=== PATIENT | female | born 1960 | race Caucasian/White ===

== ENCOUNTER → 2016-08-03 | Outpatient (REF) | payer OTHER ==
[2016-08-03 13:02] LABS: BASO % 0.8 % (0.0-1.0); EOS % 1.3 % (0.0-3.0); LARGE UNSTAINED CELL # 0.1 K/mm3 (0.0-0.4); LARGE UNSTAINED CELL % 2.1 % (0.0-4.0); LYMPH # 1.3 K/mm3 (1.5-4.5); LYMPH % 33.7 % (24.0-44.0); MEAN CORPUSCULAR HEMOGLOBIN 28.2 pg (27.0-33.0); MEAN CORPUSCULAR HGB CONC 32.1 g/dl (32.0-36.5); MEAN CORPUSCULAR VOLUME 87.7 fl (80.0-96.0); MONO # 0.2 K/mm3 (0.0-0.8); NEUTROPHILS # 2.2 K/mm3 (1.8-7.7); NEUTROPHILS % 56.1 % (36.0-66.0); PLATELET COUNT, AUTOMATED 178 k/mm3 (150-450); RED CELL DISTRIBUTION WIDTH 14.3 % (11.5-14.5); WHITE BLOOD COUNT 3.8 K/mm3 (4.0-10.0)
[2016-08-03 13:39] LABS: ALBUMIN 4.2 GM/DL (3.2-5.2); ALBUMIN/GLOBULIN RATIO 1.31 (1.00-1.93); ALKALINE PHOSPHATASE 104 U/L (45-117); ALT/SGPT 55 U/L (12-78); ANION GAP 10 MEQ/L (8-16); AST/SGOT 59 U/L (15-37); BILIRUBIN,TOTAL 0.3 MG/DL (0.2-1.0); BLOOD UREA NITROGEN 15 MG/DL (7-18); CALCIUM LEVEL 9.3 MG/DL (8.5-10.1); CARBON DIOXIDE LEVEL 26 MEQ/L (21-32); CHLORIDE LEVEL 104 MEQ/L (98-107); CHOLESTEROL LEVEL 132 MG/DL (<200); CREATININE FOR GFR 0.75 MG/DL (0.55-1.02); FREE T4 1.28 NG/DL (0.76-1.46); GLOMERULAR FILTRATION RATE > 60.0 (>51); GLUCOSE, FASTING 184 MG/DL (70-105); POTASSIUM SERUM 4.7 MEQ/L (3.5-5.1); SODIUM LEVEL 140 MEQ/L (136-145); TOTAL PROTEIN 7.4 GM/DL (6.4-8.2); TRIGLYCERIDES LEVEL 238 MG/DL (<150)
== END ==
LOC: M LABDRWAD 12:17
PROVIDERS: ATTEND Nurse Practitioner Family
DX: K21.9 Gastro-esophageal reflux disease without esophagitis (principal); E55.9 Vitamin D deficiency, unspecified; E11.9 Type 2 diabetes mellitus without complications; E78.4 Other hyperlipidemia; E03.9 Hypothyroidism, unspecified; I10 Essential (primary) hypertension

== ENCOUNTER → 2016-09-20 | Outpatient (CLI) | payer OTHER ==
--- NOTE | 2016-09-20 10:47 | REPMRS ---
Patient History The patient states she had a clinical breast exam in 08/2015. Patient is postmenopausal. No known family history of cancer. Digital Woman Screen Mammo: September 20, 2016 - Exam #: [id number] Bilateral CC and MLO view(s) were taken. Technologist: Haleigh Piña, Technologist Prior study comparison: March 18, 2013, digital woman screen mammo performed at [facility]. January 18, 2010, digital bilateral screening mammo, performed at [facility]. FINDINGS: There are scattered fibroglandular densities. The small grouping of tiny punctate calcification seen on the MLO view from 2012 has not progressed in the 4-year interval and is barely visible. Stable calcifications. There has been no change in the appearance of the mammogram from the prior studies. There is a mild amount of scattered fibroglandular density which is fairly symmetric. There is no interval development of dominant mass, architectural distortion, or clustered microcalcification suggestive of malignancy. ASSESSMENT: BI-RADS/ACR category 1 mammogram. Negative. Recommendation Routine screening mammogram in 1 year (for women over age 40). This mammogram was interpreted with the aid of an FDA-approved computer-aided dectection system. Electronically Signed By: Greg Berry MD 09/20/16 1324
== END ==
LOC: M WHC 08:45
PROVIDERS: ATTEND Nurse Practitioner Family
DX: Z12.31 Encounter for screening mammogram for malignant neoplasm of breast (principal); Z78.0 Asymptomatic menopausal state

== ENCOUNTER 2017-07-10 14:20 | Emergency (ER) | payer OTHER ==
[2017-07-10 16:21] LABS: APPEARANCE, URINE CLEAR (CLEAR); BACTERIA, URINE AUTO NEGATIVE (NEGATIVE); BILIRUBIN, URINE AUTO NEGATIVE (NEGATIVE); BLOOD, URINE BLOOD NEGATIVE (NEGATIVE); COLOR, URINE YELLOW (YELLOW); GLUCOSE, URINE (UA) AUTO 3+ mg/dL (NEGATIVE); KETONE, URINE AUTO TRACE mg/dL (NEGATIVE); LEUKOCYTE ESTERASE, URINE AUTO NEGATIVE (NEGATIVE); MUCUS, URINE SMALL (NEGATIVE); NITRITE, URINE AUTO NEGATIVE (NEGATIVE); PROTEIN, URINE AUTO NEGATIVE (NEGATIVE); RBC, URINE AUTO 1 /HPF (0-3); SPECIFIC GRAVITY URINE AUTO 1.022 (1.002-1.035); SQUAMOUS EPITHELIAL CELL UR AU 0 /HPF (0-6); UROBILINOGEN, URINE AUTO 0.2 mg/dL (0.0-2.0); WBC, URINE AUTO 5 /HPF (0-3)
[2017-07-10] MEDS: NS 1,000 ML IV (17:00)
[2017-07-10 17:07] LABS: BASO # 0.1 10^3/uL (0.0-0.2); BASO % 1.1 % (0.0-1.0); EOS # 0.1 10^3/uL (0.0-0.50); EOS % 1.1 % (0.0-3.0); HEMATOCRIT 35.7 % (36.0-47.0); HEMOGLOBIN 11.1 g/dl (12.0-15.5); IMMATURE GRANULOCYTE % 0.6 % (0-3.0); LYMPH # 1.9 10^3/uL (1.5-4.5); LYMPH % 39.9 % (24.0-44.0); MEAN CORPUSCULAR HEMOGLOBIN 25.5 pg (27.0-33.0); MEAN CORPUSCULAR HGB CONC 31.1 g/dl (32.0-36.5); MEAN CORPUSCULAR VOLUME 82.1 fl (80.0-96.0); MONO # 0.3 10^3/uL (0.0-0.8); MONO % 7.2 % (0.0-5.0); NEUTROPHILS # 2.4 10^3/uL (1.8-7.7); NEUTROPHILS % 50.1 % (36.0-66.0); PLATELET COUNT, AUTOMATED 192 10^3/uL (150-450); RED BLOOD COUNT 4.35 10^6/uL (4.00-5.40); RED CELL DISTRIBUTION WIDTH 15.2 % (11.5-14.5); WHITE BLOOD COUNT 4.7 10^3/uL (4.0-10.0)
[2017-07-10 17:18] LABS: ALBUMIN/GLOBULIN RATIO 0.95 (1.00-1.93); ALKALINE PHOSPHATASE 98 U/L (45-117); ALT/SGPT 38 U/L (12-78); ANION GAP 6 MEQ/L (8-16); AST/SGOT 42 U/L (7-37); BILIRUBIN,TOTAL 0.3 MG/DL (0.2-1.0); BLOOD UREA NITROGEN 15 MG/DL (7-18); CALCIUM LEVEL 9.2 MG/DL (8.5-10.1); CARBON DIOXIDE LEVEL 27 MEQ/L (21-32); CHLORIDE LEVEL 105 MEQ/L (98-107); GLOMERULAR FILTRATION RATE > 60.0 (>51); GLUCOSE, FASTING 271 MG/DL (70-100); SODIUM LEVEL 138 MEQ/L (136-145); TOTAL PROTEIN 8.2 GM/DL (6.4-8.2)
== END 2017-07-10 19:15 | disposition home or self-care (01) ==
LOC: M ED 14:20
DX: R10.9 Unspecified abdominal pain (principal); E11.9 Type 2 diabetes mellitus without complications; I10 Essential (primary) hypertension; E78.00 Pure hypercholesterolemia, unspecified; E03.9 Hypothyroidism, unspecified; K21.9 Gastro-esophageal reflux disease without esophagitis; Z79.84 Long term (current) use of oral hypoglycemic drugs; Z79.899 Other long term (current) drug therapy; Z79.890 Hormone replacement therapy; Z79.82 Long term (current) use of aspirin; Z87.442 Personal history of urinary calculi; Z98.890 Other specified postprocedural states; Z88.1 Allergy status to other antibiotic agents; Z88.8 Allergy status to other drugs, medicaments and biological substances
CPT/HCPCS: 74176

== ENCOUNTER 2018-08-22 08:43 | Emergency (ER) | payer OTHER ==
[~2018-08-22] VITALS: Ht 157.5 cm; Wt 86.4 kg
[~2018-08-22 08:43] MED LIST: ASPI81TA26 PO; BENI1TAB3 PO; GLYB25TA PO; LEVO150T7 PO; MACR100C43 PO; METF10004 PO; PANT40TA3 PO; SIMV80TA13 PO
[2018-08-22] MEDS ORDERED: INVO100T PO (08:51)
[2018-08-22] MEDS ORDERED: NS 1,000 ML IV ONE (09:45)
[2018-08-22 10:07] LABS: BASO # 0.1 10^3/uL (0.0-0.2); BASO % 0.6 % (0.0-1.0); EOS # 0.3 10^3/uL (0.0-0.50); HEMATOCRIT 37.8 % (36.0-47.0); HEMOGLOBIN 11.6 g/dl (12.0-15.5); LYMPH # 1.3 10^3/uL (1.5-4.5); LYMPH % 15.6 % (24.0-44.0); MEAN CORPUSCULAR HEMOGLOBIN 25.2 pg (27.0-33.0); MEAN CORPUSCULAR HGB CONC 30.7 g/dl (32.0-36.5); MONO # 0.6 10^3/uL (0.0-0.8); NEUTROPHILS # 5.7 10^3/uL (1.8-7.7); NEUTROPHILS % 71.2 % (36.0-66.0); PLATELET COUNT, AUTOMATED 186 10^3/uL (150-450); RED BLOOD COUNT 4.61 10^6/uL (4.00-5.40)
[2018-08-22 10:40] LABS: ALBUMIN 4.2 GM/DL (3.2-5.2); BILIRUBIN,DIRECT 0.2 MG/DL (0.0-0.2); BILIRUBIN,TOTAL 0.5 MG/DL (0.2-1.0); TOTAL PROTEIN 7.6 GM/DL (6.4-8.2)
--- NOTE | 2018-08-22 10:43 | REP ---
CT ABDOMEN AND PELVIS WITHOUT IV OR ORAL CONTRAST: Stone protocol study. HISTORY: Right-sided flank pain. History of kidney stones. COMPARISON CT STUDY: July 10, 2017. 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 The lung bases are clear. The liver appears mildly enlarged with a craniocaudal span in the right midclavicular line of 19.3 cm. This appears to be unchanged. The spleen is homogeneous. It is at the upper range of normal in size measuring 12.5 cm. No adrenal lesion is seen. No abnormalities noted in the pancreas. There is a tiny accessory splenule. No abnormalities noted in the gallbladder. There is an intrarenal calculus at the upper pole collecting system on the left measuring 3 mm in diameter. There is a second smaller calcification in the upper pole region. No left-sided hydronephrosis is seen. No intrarenal calculus is noted on the right. There is minimal hydronephrosis affecting the right kidney and proximal ureter with minimal periureteral stranding. No ureteral calculus or mass lesion is observed however. No bladder calculus is seen. Question recent stone passage. The uterus is surgically absent. There is left colonic diverticulosis without CT evidence of diverticulitis. A normal appendix is seen. The exam is otherwise unremarkable. No abdominal wall defect is seen. Fairly prominent vascular calcification is noted. IMPRESSION: 1. Mild hepatomegaly. Unchanged. 2. Fairly advanced vascular calcification. 3. Mild right-sided hydronephrosis and hydroureter without ureteral stone or other obstructing lesion. Question recent stone passage. 4. Intrarenal calculus upper pole left kidney without hydronephrosis on the left. 5. Left colonic diverticulosis without evidence of diverticulitis. 6. Normal appendix. Electronically Signed by Jordan Berry MD 08/22/2018 12:33 P
[2018-08-22] MEDS ORDERED: FLOM0.4C39 PO (11:50)
[2018-08-22] MEDS ORDERED: CIPR-249 PO (11:50)
[2018-08-22 11:55] VITALS: BP 140/67
== END 2018-08-22 12:28 | disposition home or self-care (01) ==
LOC: M ED 08:43
DX: N39.0 Urinary tract infection, site not specified (principal); N20.0 Calculus of kidney; R16.0 Hepatomegaly, not elsewhere classified; E11.9 Type 2 diabetes mellitus without complications; K57.32 Diverticulitis of large intestine without perforation or abscess without bleeding; E78.5 Hyperlipidemia, unspecified; Z87.442 Personal history of urinary calculi; Z87.891 Personal history of nicotine dependence; M61.9 Calcification and ossification of muscle, unspecified; N13.30 Unspecified hydronephrosis; N13.4 Hydroureter; Z79.82 Long term (current) use of aspirin; Z79.84 Long term (current) use of oral hypoglycemic drugs; Z79.899 Other long term (current) drug therapy; Z88.8 Allergy status to other drugs, medicaments and biological substances

== ENCOUNTER → 2019-04-15 | Outpatient (CLI) | payer OTHER ==
[~2019-04-15] MED LIST changes: +CIPR-249 PO; +FLOM0.4C39 PO; +INVO100T PO
--- NOTE | 2019-04-15 16:07 | REPMRS ---
Patient History The patient states she has not had a clinical breast exam in over a year. Patient is postmenopausal. No known family history of cancer. No Hormone Replacement Therapy Digital Woman Screen Mammo: April 15, 2019 - Exam #: [id number] Bilateral CC and MLO view(s) were taken. Technologist: Haleigh Piña, Technologist Prior study comparison: September 20, 2016, digital woman screen mammo performed at [facility]. March 18, 2013, digital woman screen mammo performed at [facility]. FINDINGS: There are scattered fibroglandular densities. The previously noted stable microcalcifications projecting in the upper outer quadrant left breast are again seen unchanged from the 03/18/2013 prior study. There has been no change in the appearance of the mammogram from the prior studies. There is a mild amount of scattered fibroglandular density which is fairly symmetric. There is no interval development of dominant mass, architectural distortion, or grouped microcalcification suggestive of malignancy. 3-D tomosynthesis shows no additional findings. Assessment: BI-RADS/ACR category 2 mammogram. Benign Findings. Recommendation Routine screening mammogram of both breasts in 1 year (for women over age 40). This patient's Lifetime Breast Cancer Risk is estimated at 6.7 %. This mammogram was interpreted with the aid of an FDA-approved computer-aided dectection system. Electronically Signed By: Greg Berry MD 04/15/19 [id number]
== END ==
LOC: M WHC 12:12
PROVIDERS: ATTEND Nurse Practitioner Family
DX: Z12.31 Encounter for screening mammogram for malignant neoplasm of breast (principal)

== ENCOUNTER 2019-12-14 07:53 | Emergency (ER) | payer OTHER ==
[~2019-12-14] VITALS: Ht 160 cm; Wt 83.0 kg
[~2019-12-14 07:53] MED LIST changes: +PANT40TA29 PO; -PANT40TA3 PO
[2019-12-14] MEDS ORDERED: ISOVUE-370 76% 100ML VIAL As Ordered ONE (08:56)
[2019-12-14 09:03] LABS: BASO # 0.1 10^3/uL (0.0-0.2); BASO % 1.1 % (0.0-1.0); EOS # 0.1 10^3/uL (0.0-0.5); HEMATOCRIT 40.3 % (36.0-47.0); LYMPH # 1.7 10^3/uL (1.5-5.0); LYMPH % 37.2 % (24.0-44.0); MEAN CORPUSCULAR HEMOGLOBIN 23.5 pg (27.0-33.0); MEAN CORPUSCULAR HGB CONC 29.8 g/dl (32.0-36.5); MEAN CORPUSCULAR VOLUME 78.9 fl (80.0-96.0); MONO # 0.3 10^3/uL (0.0-0.8); MONO % 7.2 % (0.0-5.0); NEUTROPHILS # 2.3 10^3/uL (1.5-8.5); NEUTROPHILS % 52.3 % (36.0-66.0); PLATELET COUNT, AUTOMATED 207 10^3/uL (150-450); RED BLOOD COUNT 5.11 10^6/uL (4.00-5.40); WHITE BLOOD COUNT 4.4 10^3/uL (4.0-10.0)
[2019-12-14 09:22] LABS: ALBUMIN 4.3 GM/DL (3.2-5.2); BILIRUBIN,DIRECT 0.1 MG/DL (0.0-0.2); BILIRUBIN,TOTAL 0.4 MG/DL (0.2-1.0); TOTAL PROTEIN 7.5 GM/DL (6.4-8.2)
--- NOTE | 2019-12-14 09:25 | REPVR ---
PROCEDURE INFORMATION: Exam: CT Abdomen And Pelvis With Contrast Exam date and time: 12/14/2019 9:02 AM Age: 59 years old Clinical indication: Abdominal pain; Localized; Left lower quadrant (llq); Additional info: Llq/groin pain TECHNIQUE: Imaging protocol: Computed tomography of the abdomen and pelvis with intravenous contrast. Radiation optimization: All CT scans at this facility use at least one of these dose optimization techniques: automated exposure control; mA and/or kV adjustment per patient size (includes targeted exams where dose is matched to clinical indication); or iterative reconstruction. Contrast material: ISOVUE 370; Contrast volume: 100 ml; Contrast route: INTRAVENOUS (IV); COMPARISON: CT ABD PELVIS W/O CONTRAST 08/22/2018 9:51 AM FINDINGS: Liver: Hepatomegaly and steatosis. Gallbladder and bile ducts: Normal. No calcified stones. No ductal dilation. Pancreas: Normal. No ductal dilation. Spleen: Normal. No splenomegaly. Adrenals: Normal. No mass. Kidneys and ureters: Nonobstructive left nephrolithiasis. No hydronephrosis. Stomach and bowel: Diverticulosis of colon. No evidence acute diverticulitis. Appendix: No evidence of appendicitis. Intraperitoneal space: Unremarkable. No free air. No significant fluid collection. Vasculature: Atherosclerotic disease of the abdominal aorta. Lymph nodes: Unremarkable. No enlarged lymph nodes. Bladder: Unremarkable as visualized. Reproductive: Post hysterectomy. Bones/joints: Mild L4 on L5 anterolisthesis, degenerative in nature. Multilevel degenerative disease and facet hypertrophy. Degenerative changes in the left hip. Soft tissues: Unremarkable. IMPRESSION: Nonobstructive left nephrolithiasis. No hydronephrosis. Diverticulosis of colon. No evidence acute diverticulitis. Hepatomegaly and steatosis. Electronically signed by: Harjinder Hankins On 12/14/2019 09:25:12 AM
[2019-12-14 09:35] LABS: HEMOGLOBIN A1c 6.3 %
--- NOTE | 2019-12-14 10:53 | REPVR ---
PROCEDURE INFORMATION: Exam: XR Left Hip with Pelvis when Performed Exam date and time: 12/14/2019 10:18 AM Age: 59 years old Clinical indication: Hip pain and pelvic pain; Left hip; Additional info: Left groin pain TECHNIQUE: Imaging protocol: XR Left hip with pelvis when performed. Views: 2 or 3 views. COMPARISON: CT ABD/PEL W/IV CONTRAST ONLY 12/14/2019 8:58 AM FINDINGS: Bones/joints: There is loss of articular cartilage in the weight-bearing surface of the hips with small adjacent osteophytes. There is an 8 mm right ischial calcification. There is no fracture. Soft tissues: Unremarkable. Organs: There is excreted IV contrast within the bladder. IMPRESSION: No acute fracture. Electronically signed by: Edilberto Giron On 12/14/2019 10:52:33 AM
--- NOTE | 2019-12-14 13:56 | REPVR ---
PROCEDURE INFORMATION: Exam: MR Lumbar Spine Without Contrast. Exam date and time: 12/14/2019 11:52 AM Age: 59 years old Clinical indication: Other: Urinary incontinence; Low back pain; Patient HX: Left back pain/incontinence of urine TECHNIQUE: Imaging protocol: Multiplanar magnetic resonance images of the lumbar spine without intravenous contrast. COMPARISON: MRI-Spine, L.S. without con 12/14/2019 10:39 AM FINDINGS: Vertebrae: There is grade 1 anterolisthesis of L4 upon L5 measuring 5 mm. Spinal cord: Normal signal. No cord compression. The conus extends to T12. L1-L2: No significant disc disease. There are mild facet joint degenerative changes. No significant spinal canal stenosis. No neural foraminal stenosis. L2-L3: There is a left foraminal bulge without mass effect. No significant spinal canal stenosis. No neural foraminal stenosis. L3-L4: There is a left foraminal and extraforaminal annular fissure. No significant spinal canal stenosis. No neural foraminal stenosis. L4-L5: There is a bulge slightly more prominent on the right than left with flattens the sac. There are severe facet joint degenerative changes and ligamentum flavum hypertrophy resulting in moderate central stenosis and right greater than left lateral recess stenosis. The neural foramina are not compromised. L5-S1: There is a small rightward bulge without mass effect. No significant spinal canal stenosis. No neural foraminal stenosis. Soft tissues: Unremarkable. IMPRESSION: There are degenerative changes most focal at L4-L5 where facet joint hypertrophy results in grade 1 anterolisthesis, moderate central stenosis, and right greater than left lateral recess stenosis. Electronically signed by: Edilberto Giron On 12/14/2019 13:56:11 PM
[2019-12-14 14:32] VITALS: BP 123/65
== END 2019-12-14 14:44 | disposition home or self-care (01) ==
LOC: M ED 07:53
DX: M51.36 Other intervertebral disc degeneration, lumbar region (principal); M16.12 Unilateral primary osteoarthritis, left hip; R32 Unspecified urinary incontinence; E11.9 Type 2 diabetes mellitus without complications; I10 Essential (primary) hypertension; E78.5 Hyperlipidemia, unspecified; K21.9 Gastro-esophageal reflux disease without esophagitis; E03.9 Hypothyroidism, unspecified; Z87.442 Personal history of urinary calculi; M43.16 Spondylolisthesis, lumbar region; M48.061 Spinal stenosis, lumbar region without neurogenic claudication; N20.0 Calculus of kidney; K57.30 Diverticulosis of large intestine without perforation or abscess without bleeding; R16.2 Hepatomegaly with splenomegaly, not elsewhere classified; Z79.82 Long term (current) use of aspirin; Z79.84 Long term (current) use of oral hypoglycemic drugs; Z79.899 Other long term (current) drug therapy; Z88.8 Allergy status to other drugs, medicaments and biological substances
CPT/HCPCS: 36415; 72148; 73502; 74177; 80047; 80076; 81001; 83036; 83690; 85025; 99284; Q9967

== ENCOUNTER → 2020-11-25 | Outpatient (CLI) | payer OTHER ==
[~2020-11-25] MED LIST changes: +GLYB2.5T7 PO; -GLYB25TA PO
--- NOTE | 2020-11-25 09:30 | REPMRS ---
Patient History The patient states she had a clinical breast exam in June 2020. No known family history of cancer. No Hormone Replacement Therapy No breast complaints today Patient signed the MRS sheet Pri[employer] on PACS Patient Identification Verified Digital Woman Screen Mammo: November 25, 2020 - Exam #: [id number] Bilateral CC and MLO view(s) were taken. Technologist: Barbie Stern, Technologist Prior study comparison: April 15, 2019, bilateral digital woman screen mammo performed at [facility]. September 20, 2016, digital woman screen mammo performed at [facility]. March 18, 2013, digital woman screen mammo performed at [facility]. FINDINGS: The breast tissue is almost entirely fat. The Volpara volumetric breast density category is: A. Previously described stable grouping of calcifications in the left breast is again seen unchanged. There has been no change in the appearance of the mammogram from the prior studies. There is no interval development of dominant mass, architectural distortion, or grouped microcalcification typical of malignancy. 3-D tomosynthesis shows no additional findings. Assessment: BI-RADS/ACR category 2 mammogram. Benign Findings. Recommendation Routine screening mammogram of both breasts in 1 year (for women over age 40). This patient's [facility] Lifetime Breast Cancer RIsk is estimated at 6.3 %. This mammogram was interpreted with the aid of an FDA-approved computer-aided dectection system. Electronically Signed By: Greg Berry MD 11/25/20 [id number]
== END ==
LOC: M WHC 07:50
PROVIDERS: ATTEND Physical Therapist
DX: Z12.31 Encounter for screening mammogram for malignant neoplasm of breast (principal)

== ENCOUNTER → 2022-06-24 | Outpatient (CLI) | payer OTHER ==
[~2022-06-24] MED LIST changes: -BENI1TAB3 PO; +OLME20TA55 PO
== END ==
LOC: M WHC 09:32
PROVIDERS: ATTEND Physical Therapist
DX: Z12.31 Encounter for screening mammogram for malignant neoplasm of breast (principal)

== ENCOUNTER → 2024-01-31 | Outpatient (CLI) | payer OTHER | LOC: M WHC 07:11 | PROVIDERS: ATTEND Physical Therapist | DX: Z12.31 Encounter for screening mammogram for malignant neoplasm of breast (principal); R92.313 Mammographic fatty tissue density, bilateral breasts ==